=== PATIENT | male | born 1995 | race Caucasian/White ===

== ENCOUNTER 2019-01-09 10:43 | Emergency (ER) | payer OTHER ==
[~2019-01-09] VITALS: Ht 182.9 cm; Wt 63.5 kg
[2019-01-09] MEDS ORDERED: KEFLEX500 MG PO (11:20)
== END 2019-01-09 11:26 | disposition home or self-care (01) ==
LOC: ER 10:43
DX: L03.211 Cellulitis of face (principal); L73.1 Pseudofolliculitis barbae
CPT/HCPCS: 99282